=== PATIENT | male | born 1950 | race Caucasian/White ===

== ENCOUNTER 2019-05-29 08:49 | Emergency (ER) | payer OTHER ==
[~2019-05-29] VITALS: Ht 175.3 cm; Wt 90.7 kg
[~2019-05-29 08:49] MED LIST: AMOX500 PO; HYDCHL12.5; LORA10; METO50ER; OMEP20ER; ROSU10TA; TERA5
[2019-05-29] MEDS ORDERED: Toprol Xl25 MG PO (09:57)
[2019-05-29] MEDS ORDERED: ROSU5 PO (09:57)
[2019-05-29] MEDS ORDERED: OMEPRAZOLE MAGN20 MG PO (09:59)
[2019-05-29] MEDS ORDERED: Aspir 8181 MG PO (09:59)
[2019-05-29] MEDS ORDERED: THERA1 EACH PO (09:59)
[2019-05-29] MEDS ORDERED: ZYRTEC10 M1 PO (09:59)
[2019-05-29] MEDS ORDERED: FISH OIL 1,001000 MG PO (10:00)
[2019-05-29] MEDS ORDERED: Bactrim Ds Tab1 EACH PO (10:14)
[2019-05-29] MEDS ORDERED: CEPH500 PO (10:14)
== END 2019-05-29 10:28 | disposition home or self-care (01) ==
LOC: ER 08:49
DX: L03.011 Cellulitis of right finger (principal); Z91.018 Allergy to other foods; Z91.040 Latex allergy status; Z88.8 Allergy status to other drugs, medicaments and biological substances; Z79.899 Other long term (current) drug therapy; Z79.82 Long term (current) use of aspirin; J45.909 Unspecified asthma, uncomplicated; I25.2 Old myocardial infarction; E78.5 Hyperlipidemia, unspecified; K21.9 Gastro-esophageal reflux disease without esophagitis; I25.10 Atherosclerotic heart disease of native coronary artery without angina pectoris
CPT/HCPCS: 96372; 99283-25; J0690

== ENCOUNTER 2019-05-30 05:48 | Emergency (ER) | payer OTHER ==
[~2019-05-30] VITALS: Ht 175.3 cm; Wt 88.5 kg
[~2019-05-30 05:48] MED LIST changes: +Aspir 8181 MG PO; +Bactrim Ds Tab1 EACH PO; +CEPH500 PO; +FISH OIL 1,001000 MG PO; +OMEPRAZOLE MAGN20 MG PO; +ROSU5 PO; +THERA1 EACH PO; +Toprol Xl25 MG PO; +ZYRTEC10 M1 PO
== END 2019-05-30 07:24 | disposition home or self-care (01) ==
LOC: ER 05:48
DX: L03.113 Cellulitis of right upper limb (principal); K21.9 Gastro-esophageal reflux disease without esophagitis; I25.2 Old myocardial infarction; E78.5 Hyperlipidemia, unspecified; I25.10 Atherosclerotic heart disease of native coronary artery without angina pectoris; Z87.891 Personal history of nicotine dependence; Z88.8 Allergy status to other drugs, medicaments and biological substances; Z91.018 Allergy to other foods; Z91.040 Latex allergy status; Z79.899 Other long term (current) drug therapy; Z79.82 Long term (current) use of aspirin
CPT/HCPCS: 10160; 36415; 96374-59; 99283-25

== ENCOUNTER 2019-06-05 01:00 | Day surgery (SDC) | payer OTHER ==
--- NOTE | 2019-06-05 07:32 | NUR ---
PT ARRIVED WITH PIV IN PLACE TO . PT HAS BEEN SEEN AT [facility] WEEK FOR IV VANCO BID.
[2019-06-05] MEDS ORDERED: VANCO 1.751.75 GM/25 IV (07:34)
--- NOTE | 2019-06-05 16:25 | NUR ---
IV TO L WRIST INFILTRATED. NEW IV PLACED TO R FA. PT REPORTS THAT TODAY WILL BE HIS "LAST DOSE". STATES HE HAS PO ANTIBIOTICS DR TOLD HIM TO START TAKING AND WILL LET DR KNOW HE DIDNT RECEIVE LAST DOSE OF VANCOMYCIN ON 06/06/19.
== END 2019-06-05 17:40 | disposition home or self-care (01) ==
LOC: ATC 01:00
DX: L03.113 Cellulitis of right upper limb (principal); I25.10 Atherosclerotic heart disease of native coronary artery without angina pectoris; I25.2 Old myocardial infarction; J45.909 Unspecified asthma, uncomplicated; K21.9 Gastro-esophageal reflux disease without esophagitis; E78.5 Hyperlipidemia, unspecified; Z88.8 Allergy status to other drugs, medicaments and biological substances; Z91.018 Allergy to other foods; Z91.040 Latex allergy status; Z79.899 Other long term (current) drug therapy; Z79.82 Long term (current) use of aspirin; Z95.1 Presence of aortocoronary bypass graft; Z87.891 Personal history of nicotine dependence
CPT/HCPCS: 96365; 96366; J3370; J7050

== ENCOUNTER 2019-06-07 00:46 | Day surgery (SDC) | payer SELFPAY ==
[~2019-06-07 00:46] MED LIST changes: +VANCO 1.751.75 GM/25 IV
== END 2019-06-07 22:41 | disposition home or self-care (01) ==
LOC: ATC 00:46
DX: L03.011 Cellulitis of right finger (principal)

== ENCOUNTER 2019-06-14 08:25 | Emergency (ER) | payer SELFPAY ==
[~2019-06-14] VITALS: Ht 175.3 cm; Wt 87.1 kg
[2019-06-14] MEDS ORDERED: Bactrim Ds Tab1 EACH PO (09:20)
== END 2019-06-14 09:29 | disposition home or self-care (01) ==
LOC: ER 08:25
DX: L03.011 Cellulitis of right finger (principal); J45.909 Unspecified asthma, uncomplicated; E78.5 Hyperlipidemia, unspecified; K21.9 Gastro-esophageal reflux disease without esophagitis; I25.10 Atherosclerotic heart disease of native coronary artery without angina pectoris; I25.2 Old myocardial infarction; Z88.8 Allergy status to other drugs, medicaments and biological substances; Z91.040 Latex allergy status; Z79.899 Other long term (current) drug therapy; Z79.82 Long term (current) use of aspirin; Z95.1 Presence of aortocoronary bypass graft; Z87.891 Personal history of nicotine dependence
CPT/HCPCS: 99283

== ENCOUNTER 2020-08-19 09:28 | Emergency (ER) | payer OTHER ==
[~2020-08-19] VITALS: Ht 177.8 cm; Wt 78.9 kg
== END 2020-08-19 10:05 | disposition home or self-care (01) ==
LOC: ER 09:28
DX: S91.332A Puncture wound without foreign body, left foot, initial encounter (principal); I25.2 Old myocardial infarction; J45.909 Unspecified asthma, uncomplicated; Z79.899 Other long term (current) drug therapy; Z79.82 Long term (current) use of aspirin; Z23 Encounter for immunization; W45.0XXA Nail entering through skin, initial encounter
CPT/HCPCS: 90471; 90714; 99282-25

== ENCOUNTER 2020-09-24 09:32 | Emergency (ER) | payer OTHER ==
[~2020-09-24] VITALS: Ht 175.3 cm; Wt 79.4 kg
[2020-09-24] MEDS ORDERED: CEPH500 PO (10:46)
== END 2020-09-24 10:52 | disposition home or self-care (01) ==
LOC: ER 09:32
DX: L03.213 Periorbital cellulitis (principal); K21.9 Gastro-esophageal reflux disease without esophagitis; J44.9 Chronic obstructive pulmonary disease, unspecified; E78.5 Hyperlipidemia, unspecified; I25.2 Old myocardial infarction; I25.810 Atherosclerosis of coronary artery bypass graft(s) without angina pectoris; Z87.891 Personal history of nicotine dependence; Z79.82 Long term (current) use of aspirin; Z79.899 Other long term (current) drug therapy; Z88.5 Allergy status to narcotic agent; Z91.040 Latex allergy status
CPT/HCPCS: 99282; A9270

== ENCOUNTER 2021-08-14 09:46 | Emergency (ER) | payer OTHER ==
[~2021-08-14] VITALS: Ht 175.3 cm; Wt 80.7 kg
[2021-08-14 10:08] LABS: BASOPHILS ABSOLUTE AUTO 0.03 K/mm3 (0.00-0.23); BASOPHILS PERCENT AUTO 0 % (0-2); EOSINOPHILS ABSOLUTE AUTO 0.23 K/mm3 (0.00-0.68); EOSINOPHILS PERCENT AUTO 3 % (0-6); Hematocrit 48.3 % (37.0-53.0); Hemoglobin 16.1 g/dL (13.5-17.5); IMMATURE GRAN ABSOLUTE AUTO 0.01 K/mm3 (0.00-0.10); IMMATURE GRAN PERCENT AUTO 0 % (0-1); LYMPHOCYTES ABSOLUTE AUTO 1.94 K/mm3 (0.84-5.20); LYMPHOCYTES PERCENT AUTO 28 % (21-46); MONOCYTES PERCENT AUTO 7 % (4-13); Mean Corpuscular HGB 32.5 pg (26.0-34.0); Mean Corpuscular HGB Conc 33.3 g/dL (31.5-36.5); Mean Corpuscular Volume 97 fL (80-100); Mean Platelet Volume 9.6 fL (9.1-12.4); NEUTROPHILS ABSOLUTE AUTO 4.35 K/mm3 (1.96-9.15); NEUTROPHILS PERCENT AUTO 62 % (41-73); Platelet Count 205 K/mm3 (150-400); RDW Coefficient Variation 12.9 % (11.7-14.2); RDW Standard Deviation 46.3 fL (35.1-46.3); Red Blood Cell Count 4.96 M/mm3 (4.30-5.90); White Blood Cell Count 7.06 K/mm3 (4.00-11.30)
[2021-08-14] MEDS ORDERED: LASIX20 M2 PO (10:09)
[2021-08-14 10:34] LABS: Alanine Aminotransfer (ALT/SGP 34 U/L (12-78); Albumin, Blood 3.5 g/dL (3.4-5.0); Albumin/Globulin Ratio 0.9 (0.8-1.8); Alk Phos 69 U/L (50-136); Anion Gap 4 mmol/L (6-16); Aspartate Aminotrans (AST/SGOT 21 U/L (12-37); Bilirubin, Total 0.4 mg/dL (0.1-1.0); Blood Urea Nitrogen 16 mg/dL (8-24); Bun/Creatinine Ratio 21.7 (12.0-20.0); CO2, Blood 29 mmol/L (21-32); Calcium, Blood 8.7 mg/dL (8.5-10.1); Chloride, Blood 110 mmol/L (98-108); Creatinine, Blood 0.74 mg/dL (0.60-1.20); Globulin, Blood 3.9 g/dL (2.2-4.0); Glomerular Filtration Rate >60 (60-); Glucose, Blood 111 mg/dL (70-99); Potassium, Blood 3.9 mmol/L (3.5-5.5); Sodium, Blood 143 mmol/L (136-145); Total Protein, Blood 7.4 g/dL (6.4-8.2); Troponin I <0.015 ng/mL (0.000-0.040)
== END 2021-08-14 12:45 | disposition home or self-care (01) ==
LOC: ER 09:46
PROVIDERS: Emergency Medicine
DX: M54.2 Cervicalgia (principal); I25.2 Old myocardial infarction; E78.5 Hyperlipidemia, unspecified; K21.9 Gastro-esophageal reflux disease without esophagitis; J44.9 Chronic obstructive pulmonary disease, unspecified; Z79.899 Other long term (current) drug therapy
CPT/HCPCS: 71045; 80053; 84484; 85025; 93005; 93010; 99284-25

== ENCOUNTER 2023-01-05 06:10 | Emergency (ER) | payer OTHER ==
[~2023-01-05] VITALS: Ht 172.7 cm; Wt 79.4 kg
[~2023-01-05 06:10] MED LIST changes: +LASIX20 M2 PO
[2023-01-05 06:28] VITALS: BP 134/80
[2023-01-05] MEDS ORDERED: Robaxin750 MG PO (07:29)
== END 2023-01-05 07:35 | disposition home or self-care (01) ==
LOC: ER 06:10
DX: S22.32XA Fracture of one rib, left side, initial encounter for closed fracture (principal); I25.2 Old myocardial infarction; I25.10 Atherosclerotic heart disease of native coronary artery without angina pectoris; E78.5 Hyperlipidemia, unspecified; K21.9 Gastro-esophageal reflux disease without esophagitis; Z88.8 Allergy status to other drugs, medicaments and biological substances; Z91.018 Allergy to other foods; Z91.040 Latex allergy status; Z79.82 Long term (current) use of aspirin; Z79.899 Other long term (current) drug therapy; Z87.891 Personal history of nicotine dependence; W18.30XA Fall on same level, unspecified, initial encounter
CPT/HCPCS: 71046